=== PATIENT | female | born 1985 | race Native Hawaiian/Other Pacific Islander ===

== ENCOUNTER 2021-11-23 13:54 | Emergency (ER) | payer OTHER ==
[~2021-11-23] VITALS: Ht 170.2 cm; Wt 93.9 kg
[2021-11-23 14:08] VITALS: BP 125/74
[2021-11-23 14:43] LABS: BASOPHILS % (AUTO) 0.4 % (0.0-2.0); EOSINOPHILS % (AUTO) 0.3 % (0.0-4.0); HEMATOCRIT 42.3 % (36-48); HEMOGLOBIN 14.3 g/dL (12.0-16.0); LYMPHOCYTES # (AUTO) 1.3 K/uL (2.5-16.5); LYMPHOCYTES % (AUTO) 10.7 % (20.5-51.1); MEAN CORPUSCULAR HEMOGLOBIN 30 pg (27-31); MEAN CORPUSCULAR HGB CONC 34 g/dL (33-37); MEAN CORPUSCULAR VOLUME 87.8 fL (80-94); MONOCYTES # (AUTO) 0.5 K/uL (0.8-1.0); MONOCYTES % (AUTO) 4.2 % (1.7-9.3); NEUTROPHILS # (AUTO) 10.7 K/uL (1.8-7.7); NEUTROPHILS % (AUTO) 84.4 % (42.2-75.2); PLATELET COUNT (AUTO) 271 K/uL (140-450); RED BLOOD CELL COUNT(AUTO) 4.82 MIL/uL (4.20-5.40); RED CELL DISTRIBUTION WIDTH 13.5 % (11.6-13.7); WHITE BLOOD COUNT (AUTO) 12.6 K/uL (4.8-10.8)
[2021-11-23 14:56] LABS: ALBUMIN 4.1 g/dL (3.4-5.0); ANION GAP 9.7 (8-16); CARBON DIOXIDE 32.7 mmol/L (21-32); CREATININE 0.7 mg/dL (0.6-1.3); POTASSIUM 3.4 mmol/L (3.5-5.1); TOTAL BILIRUBIN 1.5 mg/dL (0.0-1.0)
[2021-11-23] MEDS ORDERED: DICYCLOMINE HCL LIQUID 20 MG, ALUMINUM HYD/MAG/SIMETHICONE 30 ML, LIDOCAINE VISCOUS 2% ... PO ONE ×6 (15:30→15:55)
[2021-11-23] MEDS ORDERED: ONDANSETRON 4 MG ODT PO ONE (15:55)
[2021-11-23] MEDS ORDERED: FAMOTIDINE 20 MG TAB PO ONE (15:55)
--- NOTE | 2021-11-23 16:13 | NUR ---
Patient ambulted to room 6 with steady gait.
[2021-11-23] MEDS ORDERED: DICYCLOMINE HCL LIQUID 10 MG/5 ML UDC ONE (16:20)
[2021-11-23] MEDS ORDERED: ALUMINUM HYD/MAG/SIMETHICONE 30 ML UDC ONE (16:20)
[2021-11-23] MEDS ORDERED: POTASSIUM CHLORIDE 10 MEQ TABER PO ONE (16:30)
--- NOTE | 2021-11-23 17:24 | NUR ---
Dr. Schneider evaluating patient at bedside.
[2021-11-23] MEDS ORDERED: OMEP40EC23 PO (17:42)
[2021-11-23] MEDS ORDERED: METO-485 PO (17:42)
[2021-11-23] MEDS ORDERED: ONDA-188 PO (17:42)
[2021-11-23 17:55] VITALS: BP 119/84
--- NOTE | 2021-11-23 17:55 | NUR ---
Patient discharged with v/s stable. Written and verbal after care instructions given. Patient alert, oriented and verbalized understanding of instructions. Ambulatory with steady gait. All questions addressed prior to discharge. ID band removed. Patient advised to follow up with PMD. Rx of Zofran, Reglan and Prilosec given. Opportunity to ask questions provided and answered.
== END 2021-11-23 17:55 | disposition home or self-care (01) ==
LOC: MED 13:54
DX: K21.9 Gastro-esophageal reflux disease without esophagitis (principal); Z91.040 Latex allergy status; Z91.013 Allergy to seafood; Z91.018 Allergy to other foods; Z90.49 Acquired absence of other specified parts of digestive tract
CPT/HCPCS: 36415; 74022; 80053; 81002; 81025; 83690; 85025; 99284; Q0162

== ENCOUNTER 2022-01-24 07:18 | Emergency (ER) | payer OTHER ==
[~2022-01-24] VITALS: Ht 170.2 cm; Wt 88.2 kg
[~2022-01-24 07:18] MED LIST: METO-485 PO; OMEP40EC23 PO; ONDA-188 PO
[2022-01-24 07:33] VITALS: BP 156/86
[2022-01-24] MEDS ORDERED: FAMOTIDINE 20 MG/2 ML VIAL IVP ONE (07:45)
[2022-01-24] MEDS ORDERED: ONDANSETRON 4 MG/2 ML VIAL IVP ONE (07:45)
[2022-01-24] MEDS ORDERED: NACL 0.9% 1,000 ML IV ONE (07:45)
[2022-01-24] MEDS ORDERED: KETOROLAC 15 MG/ML VIAL IVP ONE (07:45)
--- NOTE | 2022-01-24 08:11 | NUR ---
X-RAY AT BEDSIDE.
--- NOTE | 2022-01-24 08:12 | NUR ---
36 Y/O F BIB SELF C/O ABDOMINAL PAIN 10/, N/V , ORTEGA, WEAKNESS, BACK PAIN , CHILLS , COUGH X 4 DAYS. PMH: GALL BLADDER REMOVAL 1 YEAR AGO
[2022-01-24 08:24] LABS: APPEARANCE,URINE CLEAR (CLEAR); BILIRUBIN,URINE NEGATIVE (NEGATIVE); BLOOD, URINE 2+ (NEGATIVE); COLOR,URINE YELLOW (YELLOW); LEUKOCYTE ESTERASE ,URINE NEGATIVE (NEGATIVE); NITRITE, URINE NEGATIVE (NEGATIVE); UGLUCOSE NEGATIVE (NEGATIVE)
[2022-01-24 08:36] LABS: ALBUMIN 3.9 g/dL (3.4-5.0); ANION GAP 14.1 (8-16); BASOPHILS % (AUTO) 0.2 % (0.0-2.0); CARBON DIOXIDE 29.1 mmol/L (21-32); CREATININE 0.7 mg/dL (0.6-1.3); HEMATOCRIT 42.6 % (36-48); HEMOGLOBIN 14.2 g/dL (12.0-16.0); LYMPHOCYTES # (AUTO) 0.7 K/uL (2.5-16.5); LYMPHOCYTES % (AUTO) 6.6 % (20.5-51.1); MEAN CORPUSCULAR HEMOGLOBIN 29 pg (27-31); MEAN CORPUSCULAR HGB CONC 33 g/dL (33-37); MEAN CORPUSCULAR VOLUME 88.1 fL (80-94); MONOCYTES # (AUTO) 0.3 K/uL (0.8-1.0); MONOCYTES % (AUTO) 2.5 % (1.7-9.3); NEUTROPHILS # (AUTO) 9.8 K/uL (1.8-7.7); NEUTROPHILS % (AUTO) 90.7 % (42.2-75.2); PLATELET COUNT (AUTO) 276 K/uL (140-450); POTASSIUM 3.2 mmol/L (3.5-5.1); RED BLOOD CELL COUNT(AUTO) 4.83 MIL/uL (4.20-5.40); RED CELL DISTRIBUTION WIDTH 13.6 % (11.6-13.7); WHITE BLOOD COUNT (AUTO) 10.8 K/uL (4.8-10.8)
[2022-01-24] MEDS ORDERED: POTASSIUM CHLORIDE 10 MEQ TABER PO ONE (08:45)
[2022-01-24] MEDS ORDERED: ALUMINUM HYD/MAG/SIMETHICONE 30 ML UDC PO ONE (09:05)
[2022-01-24] MEDS ORDERED: SUCR1TAB35 PO (09:48)
[2022-01-24] MEDS ORDERED: ONDA-188 PO (09:48)
[2022-01-24] MEDS ORDERED: FAMO-92 PO (09:48)
[2022-01-24 10:35] VITALS: BP 134/77
--- NOTE | 2022-01-24 10:36 | NUR ---
Patient discharged with v/s stable. Written and verbal after care instructions given and explained. Patient alert, oriented and verbalized understanding of instructions. Ambulatory with steady gait. All questions addressed prior to discharge. ID band removed. Patient advised to follow up with PMD. Rx of FAMOTIDINE, ONDANSETORN, SUCRALFATE given. Opportunity to ask questions provided and answered.
--- NOTE | 2022-01-24 11:01 | NUR ---
The patient's care was reviewed and supervised by She Dang RN.
== END 2022-01-24 10:36 | disposition home or self-care (01) ==
LOC: MED 07:18
DX: R10.13 Epigastric pain (principal); Z20.822 Contact with and (suspected) exposure to COVID-19; R11.2 Nausea with vomiting, unspecified; R05.9 Cough, unspecified; Z90.49 Acquired absence of other specified parts of digestive tract; Z79.899 Other long term (current) drug therapy; Z91.040 Latex allergy status; Z91.018 Allergy to other foods
CPT/HCPCS: 36415; 71045; 80053; 81003; 83690; 85025; 87426; 87804; 96361; 96374; 96375; 99284; J1885; J2405; J3490

== ENCOUNTER 2022-04-17 08:47 | Emergency (ER) | payer OTHER ==
[~2022-04-17] VITALS: Ht 170.2 cm; Wt 87.5 kg
[~2022-04-17 08:47] MED LIST changes: +FAMO-92 PO; +SUCR1TAB35 PO
[2022-04-17 09:09] VITALS: BP 150/89
--- NOTE | 2022-04-17 09:19 | NUR ---
PT WALKED TO ROOM 11, REPORT ENDORSED TO GOKUL SAUNDERS.
--- NOTE | 2022-04-17 09:31 | NUR ---
ASSUMED PATIENT CARE, NURSING ASSESSMENT COMPLETED.
[2022-04-17] MEDS ORDERED: ALUMINUM HYD/MAG/SIMETHICONE 30 ML UDC ONE (09:44)
[2022-04-17] MEDS ORDERED: DICYCLOMINE HCL LIQUID 10 MG/5 ML UDC ONE (09:44)
[2022-04-17] MEDS: DICYCLOMINE HCL LIQUID 20 MG, ALUMINUM HYD/MAG/SIMETHICONE 30 ML, LIDOCAINE VISCOUS 2% ... PO ONE ×3 (09:45)
[2022-04-17] MEDS: NACL 0.9% 2,000 ML IV ONE (09:46)
[2022-04-17] MEDS: METOCLOPRAMIDE 10 MG/2 ML INJ VIAL IVP ONE (09:46)
[2022-04-17 09:57] LABS: BASOPHILS % (AUTO) 0.1 % (0.0-2.0); HEMATOCRIT 43.5 % (36-48); HEMOGLOBIN 14.5 g/dL (12.0-16.0); LYMPHOCYTES # (AUTO) 0.7 K/uL (2.5-16.5); LYMPHOCYTES % (AUTO) 7.4 % (20.5-51.1); MEAN CORPUSCULAR HEMOGLOBIN 30 pg (27-31); MEAN CORPUSCULAR HGB CONC 33 g/dL (33-37); MEAN CORPUSCULAR VOLUME 88.8 fL (80-94); MONOCYTES # (AUTO) 0.5 K/uL (0.8-1.0); MONOCYTES % (AUTO) 4.7 % (1.7-9.3); NEUTROPHILS # (AUTO) 8.5 K/uL (1.8-7.7); NEUTROPHILS % (AUTO) 87.8 % (42.2-75.2); PLATELET COUNT (AUTO) 307 K/uL (140-450); WHITE BLOOD COUNT (AUTO) 9.7 K/uL (4.8-10.8)
[2022-04-17 10:00] LABS: APPEARANCE,URINE CLEAR (CLEAR); BILIRUBIN,URINE 1+ (NEGATIVE); BLOOD, URINE 2+ (NEGATIVE); COLOR,URINE YELLOW (YELLOW); LEUKOCYTE ESTERASE ,URINE NEGATIVE (NEGATIVE); NITRITE, URINE NEGATIVE (NEGATIVE); UGLUCOSE NEGATIVE (NEGATIVE)
[2022-04-17 10:21] LABS: ALBUMIN 4.5 g/dL (3.4-5.0); ANION GAP 13.2 (8-16); CARBON DIOXIDE 29.2 mmol/L (21-32); CREATININE 0.9 mg/dL (0.6-1.3); POTASSIUM 3.4 mmol/L (3.5-5.1); TOTAL BILIRUBIN 1.1 mg/dL (0.0-1.0)
[2022-04-17 10:30] LABS: RBC,URINE NONE SEEN /HPF (0-5); WBC,URINE 0-5 /HPF (0-5)
[2022-04-17 12:22] VITALS: BP 113/64
--- NOTE | 2022-04-17 12:45 | NUR ---
IV removed, catheter intact and site benign. Applied folded 4x4 gauze and tape to stop bleeding.
--- NOTE | 2022-04-17 12:45 | NUR ---
Patient discharged with v/s stable. Written and verbal after care instructions FOR VOMITING given and explained. Patient verbalized understanding. Ambulatory with steady gait. All questions addressed prior to discharge. Advised to follow up with PMD.
== END 2022-04-17 12:45 | disposition home or self-care (01) ==
LOC: MED 08:47
DX: R11.2 Nausea with vomiting, unspecified (principal); R10.10 Upper abdominal pain, unspecified; K21.9 Gastro-esophageal reflux disease without esophagitis; Z79.899 Other long term (current) drug therapy; Z88.8 Allergy status to other drugs, medicaments and biological substances; Z91.040 Latex allergy status; Z91.018 Allergy to other foods; Z90.49 Acquired absence of other specified parts of digestive tract
CPT/HCPCS: 36415; 80053; 81001; 83690; 84703; 85025; 96361; 96374; 99283; J2765; J7030